=== PATIENT | male | born 1955 | race Caucasian/White ===

== ENCOUNTER 2016-09-24 22:30 | Inpatient (IN) | payer MEDICAID ==
--- NOTE | 2016-09-24 23:14 | ED Physician Chart ---
Chief Complaint/HPI - Patient Information Date Seen:: 09/24/16 Time Seen:: 23:09 Chief Complaint:: altered LOC History of Present Illness:: ems were called to get this pt for alt ms. pt says he is here because he vomited earlier today and had RODRIGUEZ and ABd pain. He does not strike me as very reliable....data from [place] is not enlightening. asked pt why he is in [facility] he cant tell me. asked detailed questions pt not helpfull. for instance he cant tell me why his speech is slurred or if this is nrml or not. Historian:: Patient, Medical Records Review:: Transfer documents Reviewed Review of Systems - Review of Systems General/Constitutional: No fever, No chills, No weight loss, No weakness, No diaphoresis, No edema, No loss of appetite Skin: No skin lesions, No rash, No bruising Head: No headache, No light-headedness Eyes: No loss of vision, No pain, No diplopia ENT: No earache, No nasal drainage, No sore throat, No tinnitus Neck: No neck pain, No swelling, No thyromegaly, No stiffness, No mass noted Cardio Vascular: No chest pain, No palpitations, No PND, No orthopnea, No edema Pulmonary: No SOB, No cough, No sputum, No wheezing GI: No nausea, No vomiting, No diarrhea, No pain, No melena, No hematochezia, No constipation, No hematemesis G/U: No dysuria, No frequency, No hematuria Musculoskeletal: No bone or joint pain, No back pain, No muscle pain Endocrine: No polyuria, No polydipsia Psychiatric: No prior psych history, No depression, No anxiety, No suicidal ideation Hematopoietic: No bruising, No lymphadenopathy Allergic/Immuno: No urticaria, No angioedema Neurological: No syncope, No focal symptoms, No weakness, No paresthesia, No headache, No seizure, No dizziness, Confusion, No vertigo, Other (slurred speech ) Past Medical History - Past Medical History Past Medical History: DM, CAD, Dyslipidemia, Other (extrapyrimidal mvt disorder) Social History: Care Facility Psychiatricy History: Schizophrenia Medication: Reviewed Family Medical History - Family Member Mother History Unknown: Yes Physical Exam - Physical Examination General/Constitutional: Awake, Well-developed, well-nourished, Alert, No distress, GCS 15, Non-toxic appearing, Ambulatory Other Gen/Cons comments:: pt able to walk but seems unsteady on feet. speech is intelligable but thick/ slow and difficult to understand. Head: Atraumatic Eyes: Lids, conjuctiva normal, PERRL, EOMI Skin: Nl inspection, No rash, No skin lesions, No ecchymosis, Well hydrated, No lymphadenopathy ENMT: External ears, nose nl, Nasal exam nl, Lips, teeth, gums nl Neck: Nontender, Full ROM w/o pain, No JVD, No nuchal rigidity, No bruit, No mass, No stridor Respiratory: Nl effort/Exclusion, Clear to Auscultation, No Wheeze/Rhonchi/Rales Cardio Vascular: RRR, No murmur, gallop, rubs, NL S1 S2 GI: No tenderness/rebounding/guarding, No organomegaly, No hernia, Normal BS's, Nondistended, No mass/bruits, No McBurney tenderness : No CVA tenderness Extremities: No tenderness or effusion, Full ROM, normal strength in all extremities, No edema, Normal digits & nails Neuro/Psych: Alert/oriented, DTR's symmetric, Normal sensory exam, Normal motor strength, Judgement/insight normal, Mood normal, Normal gait, No focal deficits Misc: normal gait, Normal back, No paraspinal tenderness Labs/Radiology/EKG Results - Lab Results Results: Laboratory Tests 09/24/16 09/24/16 09/24/16 23:47 23:47 23:47 WBC 6.3 RBC 4.23 L Hgb 13.0 L Hct 37.9 L MCV 89.6 MCH 30.7 H MCHC Differential 34.3 RDW 12.2 Plt Count 163 MPV 8.3 Neutrophils % 60.4 Lymphocytes % 30.9 Monocytes % 6.7 Eosinophils % 1.8 Basophils % 0.2 Sodium 134 L Potassium 3.9 Chloride 99 Carbon Dioxide 28.6 Anion Gap 10.3 BUN 14 Creatinine 0.8 Est GFR ( Amer) > 60.0 Est GFR (Non-Af Amer) > 60.0 BUN/Creatinine Ratio 17.5 Glucose 263 H Whole Bld Lactic Acid Calcium 8.9 Total Bilirubin 0.5 AST 16 ALT 19 Alkaline Phosphatase 33 L Troponin I < 0.01 L Total Protein 7.1 Albumin 3.5 L Globulin 3.6 Albumin/Globulin Ratio 1.0 Urine Source Urine Color Urine Clarity Urine pH Ur Specific [place] Urine Protein Urine Glucose (UA) Urine Ketones Urine Blood Urine Nitrate Urine Bilirubin Urine Urobilinogen Ur Leukocyte Esterase Urine RBC Urine WBC Ur Epithelial Cells Urine Bacteria Valproic Acid 67.7 09/24/16 09/25/16 23:47 01:40 WBC RBC Hgb Hct MCV MCH MCHC Differential RDW Plt Count MPV Neutrophils % Lymphocytes % Monocytes % Eosinophils % Basophils % Sodium Potassium Chloride Carbon Dioxide Anion Gap BUN Creatinine Est GFR ( Amer) Est GFR (Non-Af Amer) BUN/Creatinine Ratio Glucose Whole Bld Lactic Acid 1.75 Calcium Total Bilirubin AST ALT Alkaline Phosphatase Troponin I Total Protein Albumin Globulin Albumin/Globulin Ratio Urine Source CLEAN C Urine Color YELLOW Urine Clarity CLEAR Urine pH 6.0 Ur Specific [place] 1.010 Urine Protein NEGATIVE Urine Glucose (UA) 100 H Urine Ketones NEGATIVE Urine Blood NEGATIVE Urine Nitrate NEGATIVE Urine Bilirubin NEGATIVE Urine Urobilinogen 0.2 Ur Leukocyte Esterase NEGATIVE Urine RBC NONE SEEN Urine WBC 0-2 Ur Epithelial Cells OCCASIONAL Urine Bacteria OCCASIONAL Valproic Acid - Radiology Results Results: ct abd/p- small hh, nonobs rt renal stone, nrml appy, no ash, ct head volume loss - EKG Interpretations EKG Time:: 00:05 Rhythm: nsr 69 [place]: -24 Comments:: nsr 69 wnl ED Septic Shock - . Is Septic Shock (SBP<90, OR Lactate>4 mmol\L) present?: No Reassessment (Disposition) - Reassessment Reassessment:: admit by Dr William Reassessment Condition:: Unchanged - Diagnosis Diagnosis:: ALOC - Patient Disposition Admitted to:: Telemetry Condition at Disposition:: Unchanged ED Discharge Plan - Patient Disposition Admit/Discharge/Transfer: Acute Care w/in this hosp Condition at Disposition: Stable
[2016-09-25 00:09] LABS: % BASOPHILS 0.2 % (0.0-2.0); % EOSINOPHILS 1.8 % (0.0-5.0); % LYMPHOCYTES 30.9 % (20.0-50.0); % MONOCYTES 6.7 % (2.0-10.0); % NEUTROPHILS 60.4 % (40.0-80.0); HEMATOCRIT 37.9 % (39.0-49.0); MEAN CELL VOLUME 89.6 fl (80-99); MEAN CORPUSCULAR HEMOGLOBIN 30.7 pg (26.0-30.0); MEAN CORPUSCULAR HGB CONC 34.3 pg (28.0-36.0); MEAN PLATELET VOLUME 8.3 fl; NEUTROPHILE ABSOLUTE 3.9 Th/cmm (1.8-8.0); PLATELET COUNT 163 Th/cmm (150-400); RED BLOOD COUNT 4.23 Mil/cmm (4.30-5.70); RED CELL DISTRIBUTION WIDTH 12.2 % (11.5-20.0); WHITE BLOOD COUNT 6.3 Th/cmm (4.8-10.8)
[2016-09-25 00:18] LABS: ALKALINE PHOSPHATASE 33 U/L (34-104); ANION GAP 10.3 (7.0-16.0); BILIRUBIN,TOTAL 0.5 mg/dL (0.3-1.0); BUN - UREA NITROGEN 14 mg/dL (7-25); BUN/CREATININE RATIO 17.5; CALCIUM SERUM 8.9 mg/dL (8.6-10.3); CARBON DIOXIDE 28.6 mEq/L (21.0-31.0); CHLORIDE 99 mEq/L (98-107); CREATININE - SERUM 0.8 mg/dL (0.7-1.3); GLUCOSE 263 mg/dL (70-105); POTASSIUM SERUM 3.9 mEq/L (3.5-5.1); SGOT 16 U/L (13-39); SGPT/ALT 19 U/L (7-52); SODIUM SERUM 134 mEq/L (136-145)
[2016-09-25 00:20] LABS: TROP I < 0.01 ng/mL (0.01-0.05)
[2016-09-25 00:26] VITALS: BP 126/69
[2016-09-25 00:47] LABS: VALPROIC ACID 67.7 ug/mL (50.0-100.0)
[2016-09-25 01:56] LABS: URINE BILIRUBIN NEGATIVE (NEGATIVE); URINE BLOOD NEGATIVE (NEGATIVE); URINE COLOR YELLOW; URINE GLUCOSE (UA) 100 mg/dL (NEGATIVE); URINE KETONE NEGATIVE (NEGATIVE); URINE PROTEIN NEGATIVE (NEGATIVE); URINE UROBILINOGEN 0.2 E.U./dL (0.2 - 1.0)
[2016-09-25 01:57] LABS: URINE BACTERIA OCCASIONAL /hpf (NONE SEEN); URINE EPITHELIAL CELLS OCCASIONAL /lpf (FEW); URINE RBC NONE SEEN /hpf (0-5); URINE WBC 0-2 /hpf (0-5)
[2016-09-25 06:14] LABS: AMPHETAMINE URINE NEGATIVE (NEGATIVE); BARBITURATES URINE NEGATIVE (NEGATIVE)
[2016-09-25] MEDS ORDERED: Pneumococcal Vaccine 0.5 mL Vial IM ONE (09:00)
[2016-09-25] MEDS ORDERED: GLUCAGON HCl 1 MG KIT IM PRN (09:58)
[2016-09-25] MEDS ORDERED: PALIPERIDONE PALMITATE 234 MG IM SCH (10:15)
--- NOTE | 2016-09-25 10:49 | Diagnostic Imaging Report ---
Head CT without intravenous contrast Indication: Altered mental status Comparison: None Technique: Axial images were obtained from the vertex to the skull base without IV contrast. Coronal reconstructions were made. Total DLP: 734, CTDI37 FINDINGS: Images of the brain obtained without contrast demonstrate no evidence of an acute hemorrhage. Diffuse atrophy is noted. The ventricles and basal cisterns are patent. No mass effect or midline shift. Atherosclerosis is noted. There is partial opacification left maxillary sinus and additional mucosal thickening of paranasal sinuses. No evidence of a skull fracture or focal soft tissue swelling. IMPRESSION: No evidence of acute intracranial hemorrhage Diffuse atrophy. Left maxillary sinusitis. Atherosclerotic vascular disease.
[2016-09-25] MEDS ORDERED: INSULIN ASPART SLIDING SCALE 100 UNITS/ML UNIT SUBQ SCH (11:30)
--- NOTE | 2016-09-25 11:30 | Diagnostic Imaging Report ---
CT abdomen and pelvis without intravenous contrast Indication: Abdominal pain Comparison: None, Technique: Axial images were obtained from the lung bases to the bilateral proximal femurs without IV contrast. Coronal reconstructions were made. total DLP: 539, CTDI10 FINDINGS: Hypoventilatory changes of the lung bases are noted. Assessment of the solid organs is limited due to lack of IV contrast. No evidence of focal hepatic lesions. Borderline prominent spleen is noted. No evidence of focal lesions. No focal pancreatic or adrenal lesions. A 7 mm right renal stone is noted. No hydronephrosis. Mild urinary bladder wall thickening versus partial distention is noted. Moderate stool is seen. No appendicitis. Mild diverticulosis is noted without evidence of diverticulitis. Small hiatal hernia and possible mild distal esophageal wall thickening is noted. Diffuse atherosclerosis is noted. No free air or free fluid. Degenerative changes of the spine are noted. IMPRESSION: Moderate amount of stool. No evidence of acute appendicitis. 7 mm right renal calculus. No hydronephrosis. Mild prominence of urinary bladder wall. Please clinically correlate with the possible inflammatory process. Small hiatal hernia and possible distal esophageal wall thickening. Correlation is to be made with clinical findings. Diffuse atherosclerotic vascular disease.
--- NOTE | 2016-09-25 14:26 | Internal Medicine Prog Note ---
Internal Medicine Subjective - Subjective Service Date: 09/25/16 ([facility] dictated [id number]) Internal Medicine Objective - Results Result Diagrams: 09/24/16 23:47 09/24/16 23:47 Recent Labs: Laboratory Last Values WBC 6.3 Th/cmm (4.8-10.8) 09/24/16 23:47 RBC 4.23 Mil/cmm (4.30-5.70) L 09/24/16 23:47 Hgb 13.0 gm/dL (13.2-17.3) L 09/24/16 23:47 Hct 37.9 % (39.0-49.0) L 09/24/16 23:47 MCV 89.6 fl (80-99) 09/24/16 23:47 MCH 30.7 pg (26.0-30.0) H 09/24/16 23:47 MCHC Differential 34.3 pg (28.0-36.0) 09/24/16 23:47 RDW 12.2 % (11.5-20.0) 09/24/16 23:47 Plt Count 163 Th/cmm (150-400) 09/24/16 23:47 MPV 8.3 fl 09/24/16 23:47 Neutrophils % 60.4 % (40.0-80.0) 09/24/16 23:47 Lymphocytes % 30.9 % (20.0-50.0) 09/24/16 23:47 Monocytes % 6.7 % (2.0-10.0) 09/24/16 23:47 Eosinophils % 1.8 % (0.0-5.0) 09/24/16 23:47 Basophils % 0.2 % (0.0-2.0) 09/24/16 23:47 Sodium 134 mEq/L (136-145) L 09/24/16 23:47 Potassium 3.9 mEq/L (3.5-5.1) 09/24/16 23:47 Chloride 99 mEq/L (98-107) 09/24/16 23:47 Carbon Dioxide 28.6 mEq/L (21.0-31.0) 09/24/16 23:47 Anion Gap 10.3 (7.0-16.0) 09/24/16 23:47 BUN 14 mg/dL (7-25) 09/24/16 23:47 Creatinine 0.8 mg/dL (0.7-1.3) 09/24/16 23:47 Est GFR ( Amer) > 60.0 ml/min 09/24/16 23:47 Est GFR (Non-Af Amer) > 60.0 ml/min 09/24/16 23:47 BUN/Creatinine Ratio 17.5 09/24/16 23:47 Glucose 263 mg/dL (70-105) H 09/24/16 23:47 Hemoglobin A1c % 7.5 % (4.0-6.0) H 09/25/16 23:47 Whole Bld Lactic Acid 1.75 mmol/L (0.60-2.00) 09/24/16 23:47 Calcium 8.9 mg/dL (8.6-10.3) 09/24/16 23:47 Total Bilirubin 0.5 mg/dL (0.3-1.0) 09/24/16 23:47 AST 16 U/L (13-39) 09/24/16 23:47 ALT 19 U/L (7-52) 09/24/16 23:47 Alkaline Phosphatase 33 U/L (34-104) L 09/24/16 23:47 Troponin I < 0.01 ng/mL (0.01-0.05) L 09/24/16 23:47 Total Protein 7.1 gm/dL (6.0-8.3) 09/24/16 23:47 Albumin 3.5 gm/dL (4.2-5.5) L 09/24/16 23:47 Globulin 3.6 gm/dL 09/24/16 23:47 Albumin/Globulin Ratio 1.0 (1.0-1.8) 09/24/16 23:47 Urine Source CLEAN C 09/25/16 01:40 Urine Color YELLOW 09/25/16 01:40 Urine Clarity CLEAR (CLEAR) 09/25/16 01:40 Urine pH 6.0 09/25/16 01:40 Ur Specific [place] 1.010 (1.005-1.030) 09/25/16 01:40 Urine Protein NEGATIVE mg/dL (NEGATIVE) 09/25/16 01:40 Urine Glucose (UA) 100 mg/dL (NEGATIVE) H 09/25/16 01:40 Urine Ketones NEGATIVE mg/dL (NEGATIVE) 09/25/16 01:40 Urine Blood NEGATIVE (NEGATIVE) 09/25/16 01:40 Urine Nitrate NEGATIVE (NEGATIVE) 09/25/16 01:40 Urine Bilirubin NEGATIVE (NEGATIVE) 09/25/16 01:40 Urine Urobilinogen 0.2 E.U./dL (0.2 - 1.0) 09/25/16 01:40 Ur Leukocyte Esterase NEGATIVE (NEGATIVE) 09/25/16 01:40 Urine RBC NONE SEEN /hpf (0-5) 09/25/16 01:40 Urine WBC 0-2 /hpf (0-5) 09/25/16 01:40 Ur Epithelial Cells OCCASIONAL /lpf (FEW) 09/25/16 01:40 Urine Bacteria OCCASIONAL /hpf (NONE SEEN) 09/25/16 01:40 Urine Opiates Screen NEGATIVE (NEGATIVE) 09/25/16 01:40 Ur Barbiturates Screen NEGATIVE (NEGATIVE) 09/25/16 01:40 Valproic Acid 67.7 ug/mL (50.0-100.0) 09/24/16 23:47 Ur Phencyclidine Scrn NEGATIVE (NEGATIVE) 09/25/16 01:40 Amphetamines Screen NEGATIVE (NEGATIVE) 09/25/16 01:40 U Methamphetamines Scrn NEGATIVE (NEGATIVE) 09/25/16 01:40 U Benzodiazepines Scrn POSITIVE (NEGATIVE) H 09/25/16 01:40 U Cocaine Metab Screen NEGATIVE (NEGATIVE) 09/25/16 01:40 U Cannabinoids Screen NEGATIVE (NEGATIVE) 09/25/16 01:40 - Physical Exam Vitals and I&O: Vital Signs Temp 97.3 F 09/25/16 08:00 Pulse 60 09/25/16 08:00 Resp 15 09/25/16 08:00 BP 124/73 09/25/16 08:00 Pulse Ox 100 09/25/16 08:00 Active Medications: Current Medications Acetaminophen (Tylenol) 650 mg PO Q6HR PRN PRN Reason: Pain or Fever >101 Stop: 11/24/16 09:57 Aspirin (Aspirin Chewable) 81 mg PO DAILY JOSÉ MIGUEL Stop: 11/25/16 08:59 Atorvastatin Calcium (Lipitor) 10 mg PO HS JOSÉ MIGUEL Stop: 11/24/16 20:59 Benztropine Mesylate (Cogentin) 1 mg PO TID JOSÉ MIGUEL Stop: 11/24/16 13:59 Divalproex Sodium (Depakote Dr) 500 mg PO TID JOSÉ MIGUEL PRN Reason: Protocol Stop: 11/24/16 13:59 Fish Oil ([place] 3) 1,000 mg PO DAILY [facility] Stop: 11/25/16 08:59 Insulin Aspart (Novolog Insulin Sliding Scale) 0 units SUBQ ACHS JOSÉ MIGUEL PRN Reason: Protocol Stop: 11/24/16 11:29 Last Admin: 09/25/16 12:09 Dose: Not Given Lorazepam (Ativan) 1 mg PO PRN PRN; Protocol PRN Reason: Agitation Stop: 11/24/16 09:57 Miscellaneous (Glucagon,Human Recombinant [Glucagon Emergency Kit]) 1 mg IJ PRN PRN PRN Reason: hypoglycemia Miscellaneous (Paliperidone Palmitate [Invega Sustenna]) 234 mg IM Q30D [facility]1983 Stop: 11/24/16 10:14 Olanzapine (Zyprexa) 10 mg PO HS JOSÉ MIGUEL PRN Reason: Protocol Stop: 11/24/16 20:59 Quetiapine Fumarate (Seroquel) 25 mg PO TID JOSÉ MIGUEL PRN Reason: Protocol Stop: 11/24/16 13:59 Zolpidem Tartrate (Ambien) 5 mg PO HS PRN PRN Reason: Insomnia Stop: 11/24/16 10:00 Internal Medicine Assmt/Plan - Assessment Assessment: aloc dysarthia extrapyramidal movements hypercholesteremia dm-2
[2016-09-25] MEDS ORDERED: VTE Chemical Prophylaxis Screen/Admission MC PRN (14:32)
[2016-09-25] MEDS: Benztropine 1 MG TAB PO SCH ×2 (15:40→21:17)
--- NOTE | 2016-09-25 15:46 | History & Physical ---
CHIEF COMPLAINT: ALOC. HISTORY OF PRESENT ILLNESS: This is a 61-year-old male who is a resident of [facility] who was brought here to [facility] for ALOC. The patient also stated that he had abdominal pain. The patient has a slurred speech and poor historian. PAST MEDICAL HISTORY: Paranoid schizophrenia, insomnia, atherosclerotic heart disease, type 2 diabetes, hypercholesterolemia, extrapyramidal MVT disorder. SOCIAL HISTORY: The patient resides at a shelter, requiring 24-hour nursing care. MEDICATIONS: Please see medication reconciliation sheet. REVIEW OF SYSTEMS: Unable to obtain, the patient is somewhat confused. PHYSICAL EXAMINATION: GENERAL: The patient is well developed, well nourished, no acute distress. VITAL SIGNS: Temperature 97.0, heart rate 60, blood pressure 124/73, respirations 16, O2 100%. HEENT: Head; normocephalic, atraumatic. NECK: Supple. No mass. LUNGS: Clear bilaterally upon auscultation. CARDIOVASCULAR: Regular rhythm. No murmurs or gallops. SKIN: Intact, warm and dry to touch. ABDOMEN: Soft, nontender, nondistended. Positive bowel sounds in all 4 quadrants. LABORATORY DATA: WBC 6.3, H and H 13.0 and 37.9, platelets 163. Sodium 134, potassium 3.9, chloride 99, carbon dioxide 28.6, BUN 14, creatinine 0.8, hemoglobin A1c is 7.5. Troponin 0.01. The patient had a urinalysis that was negative for any UTI. The patient also had a toxicology test and positive for benzodiazepines. DIAGNOSTICS: The patient had a CT of the head done in the ER due to ALOC and the impression is no evidence of acute intracranial hemorrhage, left maxillary sinusitis. The patient also had a CT of the abdomen and pelvis and the impression is moderate amount of stool, no evidence of acute appendicitis. ASSESSMENT: 1. Altered level of consciousness. 2. Diabetes. 3. Coronary artery disease. 4. Dyslipidemia. 5. Dysarthria. 6. Extrapyramidal movement disorder. PLAN: The patient will be admitted to the med/surg unit. The patient will have a consultation with Dr. Stewart. The patient will be kept on IV fluids for hydration. The patient to continue same medications the patient was taking at the shelter. We will continue to monitor the patient. JOB# [id number]
[2016-09-25] MEDS: INSULIN ASPART, RECOMBINANT 100 UNITS/ML SUBQ SCH ×2 (16:54→21:19)
[2016-09-25] MEDS: Sodium Chloride 0.9% 1,000 ML IV SCH (17:37)
[2016-09-25] MEDS: Atorvastatin Calcium 10 MG TAB PO SCH (21:17)
--- NOTE | 2016-09-25 22:13 | Consultation ---
CHIEF COMPLAINT: "I am fine." HISTORY OF PRESENT ILLNESS: The patient is a 61-year-old male with a history of chronic mental illness and multiple medical problems, was [facility] his [facility] to this facility for increased agitation and confusion, becoming more difficult to redirect, now is on medical floor, has uncontrollable diabetes. The patient has been yelling, screaming, paranoid, talking to himself, very aggressive, threatening staff. PAST PSYCHIATRIC HISTORY: Chronic history of mental illness. The patient carries a diagnosis of schizoaffective disorder and he has been in the psychiatric hospital many times. PAST MEDICAL HISTORY: Diabetes that is out of control at this time and he has a history of hypercholesterolemia and the patient has history of CAD. PSYCHOSOCIAL HISTORY: The patient resides at the [facility] and he requires complete care. MENTAL STATUS EXAMINATION: The patient was in bed. Speech is minimal, dysarthric, short sentences. Mood is "okay." Affect is irritable. This patient appears to be guarded and paranoid, responding to internal stimuli. He is oriented to person, place and age. ASSESSMENT: Schizophrenia, paranoid type versus schizoaffective disorder in psychotic phase. PLAN: We will decrease Zyprexa to 10 mg by mouth every bedtime for lack of efficacy, add Seroquel 25 mg by mouth 3 times a day. The patient would need psychiatric hospitalization given the level of his agitation. We will monitor closely. Thank you for the consultation. JOB# [id number]
--- NOTE | 2016-09-26 00:20 | Admit Criteria Form ---
Admit Criteria Forms - Admit Criteria Diagnosis: ACUTE LOSS OF CONSCIOUSNESS- ALOC Clinical Indications for Inpatient Care (Place 'X' for any and all applicable criteria): Ongoing inpatient care may be needed for ANY ONE of the following(1)(2)(3)(5)(6) : [ X]I. Suspected serious etiology (eg, medical disorder, VACUUM PAN TENDER event) of mental status change [ ]II. Danger to self or others not manageable at lower level of care [ ]III. Grave disability (eg, inability to perform self care necessary at lower level of care) [ ]IV. Agitation or inappropriate behavior interfering with care for primary condition (eg, attempting to discontinue lines or drains prematurely, unable to cooperate with respiratory care) [ ]V. Delirium [A] [D][E] as described by ANY ONE of the following(26): [ ]a) Delirium due to alcohol or sedative [F] withdrawal [ ]b) Delirium of uncertain etiology that has not responded to appropriate empiric treatment [ ]c) Delirium that prevents performance of a life-sustaining function (eg, feeding or hydrating oneself) [ ]. General contraindications and/or Inappropriate clinical situations for Observational Care in patients with Acute Loss of Consciousness, when ANY ONE of the following is required: [ ]a) Prediction of prolongation of LOS based on ANY ONE of the following may be considered as a contraindication for observational care 2, 3, 4, 5, 6, 7, 8 , 9, 10, 11 [ ]i) Age > 65 yrs. [ ]ii) Patient arriving by ambulance [ ]iii) Patient with high acuity [ ]iv) Patient requiring vital sign monitoring [ ]v) Patient on IV medication [ ]b) Systolic blood pressures 180mmHg 3,12 [ ]c) Patient with altered mental status including delirium and other alteration of consciousness, (3) [ ]d) Patient whose discharge disposition will be to a nursing home home or rehabilitation home should not be managed in Emergency Department Observation Unit. CMS rule requires 3 days hospital stay before such placement.3,13 [ ]e) Patient with failure to thrive due to broad array of etiologies 3,16,17 [ ]f) Inability to ambulate 3,14 Extended stay beyond goal length of stay for the primary condition may be needed until ALL of the following are present(3)(5): [ ]a) Underlying medical etiology of mental status change is absent, or has been established and adequately treated [ ]b) Danger to self or others is absent or manageable at lower level of care. [ ]c) Behavior crisis management, including physical or chemical restraints, is not required or available at lower level of car [ ]d) Substance or alcohol withdrawal is absent or manageable at lower level of care. [ ]e) Behavioral symptoms (eg, agitation, somnolence, inappropriate behavior) are absent, or are manageable at lower level of care. The original [facility] content created by [facility] has been revised. The portions of the content which have been revised are identified through the use of italic text or in bold, and [facility] has neither reviewed nor approved the modified material. All other unmodified content is copyright [facility]. Please see references footnoted in the original [facility] edition 2016 Admit Criteria Met?: Yes
[2016-09-26 05:48] LABS: % BASOPHILS 0.2 % (0.0-2.0); % LYMPHOCYTES 26.6 % (20.0-50.0); % MONOCYTES 6.4 % (2.0-10.0); % NEUTROPHILS 64.8 % (40.0-80.0); HEMOGLOBIN 13.6 gm/dL (13.2-17.3); MEAN CELL VOLUME 86.8 fl (80-99); MEAN CORPUSCULAR HEMOGLOBIN 29.4 pg (26.0-30.0); MEAN CORPUSCULAR HGB CONC 33.9 pg (28.0-36.0); NEUTROPHILE ABSOLUTE 3.7 Th/cmm (1.8-8.0); PLATELET COUNT 154 Th/cmm (150-400); RED BLOOD COUNT 4.61 Mil/cmm (4.30-5.70); RED CELL DISTRIBUTION WIDTH 12.4 % (11.5-20.0); WHITE BLOOD COUNT 5.7 Th/cmm (4.8-10.8)
[2016-09-26 06:00] LABS: ANION GAP 9.4 (7.0-16.0); BUN - UREA NITROGEN 18 mg/dL (7-25); BUN/CREATININE RATIO 22.5; CALCIUM SERUM 8.7 mg/dL (8.6-10.3); CHLORIDE 101 mEq/L (98-107); CREATININE - SERUM 0.8 mg/dL (0.7-1.3); GLUCOSE 198 mg/dL (70-105); POTASSIUM SERUM 4.4 mEq/L (3.5-5.1); SODIUM SERUM 135 mEq/L (136-145)
[2016-09-26] MEDS: INSULIN ASPART, RECOMBINANT 100 UNITS/ML SUBQ SCH ×4 (06:45→21:22)
[2016-09-26] MEDS: Benztropine 1 MG TAB PO SCH ×3 (09:17→21:21)
[2016-09-26] MEDS: Fish Oil 1,000 MG SGL PO SCH (09:17)
[2016-09-26] MEDS: Aspirin 81mg Chewable Tab PO SCH (09:17)
--- NOTE | 2016-09-26 12:57 | Internal Medicine Prog Note ---
Internal Medicine Subjective - Subjective Service Date: 09/26/16 Patient seen and examined:: with staff Patient is:: awake Per staff patient is:: no adverse event Internal Medicine Objective - Results Result Diagrams: 09/26/16 05:28 09/26/16 05:28 Recent Labs: Laboratory Last Values WBC 5.7 Th/cmm (4.8-10.8) 09/26/16 05:28 RBC 4.61 Mil/cmm (4.30-5.70) 09/26/16 05:28 Hgb 13.6 gm/dL (13.2-17.3) 09/26/16 05:28 Hct 40.0 % (39.0-49.0) 09/26/16 05:28 MCV 86.8 fl (80-99) 09/26/16 05:28 MCH 29.4 pg (26.0-30.0) 09/26/16 05:28 MCHC Differential 33.9 pg (28.0-36.0) 09/26/16 05:28 RDW 12.4 % (11.5-20.0) 09/26/16 05:28 Plt Count 154 Th/cmm (150-400) 09/26/16 05:28 MPV 8.0 fl 09/26/16 05:28 Neutrophils % 64.8 % (40.0-80.0) 09/26/16 05:28 Lymphocytes % 26.6 % (20.0-50.0) 09/26/16 05:28 Monocytes % 6.4 % (2.0-10.0) 09/26/16 05:28 Eosinophils % 2.0 % (0.0-5.0) 09/26/16 05:28 Basophils % 0.2 % (0.0-2.0) 09/26/16 05:28 Sodium 135 mEq/L (136-145) L 09/26/16 05:28 Potassium 4.4 mEq/L (3.5-5.1) 09/26/16 05:28 Chloride 101 mEq/L (98-107) 09/26/16 05:28 Carbon Dioxide 29.0 mEq/L (21.0-31.0) 09/26/16 05:28 Anion Gap 9.4 (7.0-16.0) 09/26/16 05:28 BUN 18 mg/dL (7-25) 09/26/16 05:28 Creatinine 0.8 mg/dL (0.7-1.3) 09/26/16 05:28 Est GFR ( Amer) > 60.0 ml/min 09/26/16 05:28 Est GFR (Non-Af Amer) > 60.0 ml/min 09/26/16 05:28 BUN/Creatinine Ratio 22.5 09/26/16 05:28 Glucose 198 mg/dL (70-105) H 09/26/16 05:28 POC Glucose 211 MG/DL (70 - 105) H 09/26/16 11:27 Hemoglobin A1c % 7.5 % (4.0-6.0) H 09/25/16 23:47 Whole Bld Lactic Acid 1.75 mmol/L (0.60-2.00) 09/24/16 23:47 Calcium 8.7 mg/dL (8.6-10.3) 09/26/16 05:28 Total Bilirubin 0.5 mg/dL (0.3-1.0) 09/24/16 23:47 AST 16 U/L (13-39) 09/24/16 23:47 ALT 19 U/L (7-52) 09/24/16 23:47 Alkaline Phosphatase 33 U/L (34-104) L 09/24/16 23:47 Troponin I < 0.01 ng/mL (0.01-0.05) L 09/24/16 23:47 Total Protein 7.1 gm/dL (6.0-8.3) 09/24/16 23:47 Albumin 3.5 gm/dL (4.2-5.5) L 09/24/16 23:47 Globulin 3.6 gm/dL 09/24/16 23:47 Albumin/Globulin Ratio 1.0 (1.0-1.8) 09/24/16 23:47 Urine Source CLEAN C 09/25/16 01:40 Urine Color YELLOW 09/25/16 01:40 Urine Clarity CLEAR (CLEAR) 09/25/16 01:40 Urine pH 6.0 09/25/16 01:[address] 1.010 (1.005-1.030) 09/25/16 01:40 Urine Protein NEGATIVE mg/dL (NEGATIVE) 09/25/16 01:40 Urine Glucose (UA) 100 mg/dL (NEGATIVE) H 09/25/16 01:40 Urine Ketones NEGATIVE mg/dL (NEGATIVE) 09/25/16 01:40 Urine Blood NEGATIVE (NEGATIVE) 09/25/16 01:40 Urine Nitrate NEGATIVE (NEGATIVE) 09/25/16 01:40 Urine Bilirubin NEGATIVE (NEGATIVE) 09/25/16 01:40 Urine Urobilinogen 0.2 E.U./dL (0.2 - 1.0) 09/25/16 01:40 Ur Leukocyte Esterase NEGATIVE (NEGATIVE) 09/25/16 01:40 Urine RBC NONE SEEN /hpf (0-5) 09/25/16 01:40 Urine WBC 0-2 /hpf (0-5) 09/25/16 01:40 Ur Epithelial Cells OCCASIONAL /lpf (FEW) 09/25/16 01:40 Urine Bacteria OCCASIONAL /hpf (NONE SEEN) 09/25/16 01:40 Urine Opiates Screen NEGATIVE (NEGATIVE) 09/25/16 01:40 Ur Barbiturates Screen NEGATIVE (NEGATIVE) 09/25/16 01:40 Valproic Acid 67.7 ug/mL (50.0-100.0) 09/24/16 23:47 Ur Phencyclidine Scrn NEGATIVE (NEGATIVE) 09/25/16 01:40 Amphetamines Screen NEGATIVE (NEGATIVE) 09/25/16 01:40 U Methamphetamines Scrn NEGATIVE (NEGATIVE) 09/25/16 01:40 U Benzodiazepines Scrn POSITIVE (NEGATIVE) H 09/25/16 01:40 U Cocaine Metab Screen NEGATIVE (NEGATIVE) 09/25/16 01:40 U Cannabinoids Screen NEGATIVE (NEGATIVE) 09/25/16 01:40 - Physical Exam Vitals and I&O: Vital Signs Temp 69 F 09/26/16 12:19 Pulse 69 09/26/16 12:19 Resp 18 09/26/16 12:19 BP 103/50 09/26/16 12:19 Pulse Ox 98 09/26/16 12:19 Intake & Output 09/25/16 09/26/16 09/26/16 18:59 06:59 18:59 Intake Total 1020 220 Balance 1020 220 Intake: Oral 1020 220 Other: # Voids 3 2 Active Medications: Current Medications Acetaminophen (Tylenol) 650 mg PO Q6HR PRN PRN Reason: Pain or Fever >101 Stop: 11/24/16 09:57 Aspirin (Aspirin Chewable) 81 mg PO DAILY [facility] Stop: 11/25/16 08:59 Last Admin: 09/26/16 09:17 Dose: 81 mg Atorvastatin Calcium (Lipitor) 10 mg PO HS [facility] Stop: 11/24/16 20:59 Last Admin: 09/25/16 21:17 Dose: 10 mg Benztropine Mesylate (Cogentin) 1 mg PO TID [facility] Stop: 11/24/16 13:59 Last Admin: 09/26/16 09:17 Dose: 1 mg Divalproex Sodium (Depakote Dr) 500 mg PO TID [facility] PRN Reason: Protocol Stop: 11/24/16 13:59 Last Admin: 09/26/16 09:17 Dose: 500 mg Fish Oil ([place] 3) 1,000 mg PO DAILY [facility] Stop: 11/25/16 08:59 Last Admin: 09/26/16 09:17 Dose: 1,000 mg Glucagon (Glucagen) 1 mg IM PRN PRN PRN Reason: Blood Sugar <60 Sodium Chloride (Nacl 0.9%) 1,000 mls @ 50 mls/hr IV .Q20H [facility] Stop: 11/24/16 14:29 Last Admin: 09/25/16 17:37 Dose: 50 mls/hr Insulin Aspart (Novolog) 0 units SUBQ ACHS [facility] PRN Reason: Protocol Stop: 11/24/16 16:29 Last Admin: 09/26/16 06:45 Dose: 4 units Lorazepam (Ativan) 1 mg PO Q8H PRN; Protocol PRN Reason: Agitation Stop: 11/24/16 09:57 Metformin HCl (Glucophage) 850 mg PO BID [facility] Stop: 11/25/16 16:59 Miscellaneous (Paliperidone Palmitate [Invega Sustenna]) 234 mg IM Q30D [facility] Stop: 11/24/16 10:14 Miscellaneous ([employer] Prophylaxis Screen/ Admission) 1 ea [facility] PRN PRN PRN Reason: PROTOCOL Stop: 11/24/16 14:31 Olanzapine (Zyprexa) 10 mg PO HS [facility] PRN Reason: Protocol Stop: 11/24/16 20:59 Last Admin: 09/25/16 21:17 Dose: 10 mg Pantoprazole Sodium (Protonix) 40 mg IVP DAILY [facility] Stop: 11/25/16 08:59 Last Admin: 09/26/16 09:17 Dose: 40 mg Quetiapine Fumarate (Seroquel) 25 mg PO TID [facility] PRN Reason: Protocol Stop: 11/24/16 13:59 Last Admin: 09/26/16 09:17 Dose: 25 mg Zolpidem Tartrate (Ambien) 5 mg PO HS PRN PRN Reason: Insomnia Stop: 11/24/16 10:00 General: alert HEENT: NC/AT, PERRLA Neck: Supple Lungs: CTAB Cardiovascular: RRR, Normal S1, Normal S2, without murmur Abdomen: soft non-tender, non-distended, positive bowel sound Neurological: no change Internal Medicine Assmt/Plan - Assessment Assessment: aloc dysarthia extrapyramidal movements hypercholesteremia dm-2 - Plan Plan: monitor glucose level aspiration precaution fall precautions cpm
[2016-09-26] MEDS: Sodium Chloride 0.9% 1,000 ML IV SCH (14:29)
[2016-09-26] MEDS: Atorvastatin Calcium 10 MG TAB PO SCH (21:21)
[2016-09-27] MEDS: INSULIN ASPART, RECOMBINANT 100 UNITS/ML SUBQ SCH ×2 (06:39→12:35)
[2016-09-27 07:00] LABS: % BASOPHILS 0.1 % (0.0-2.0); % EOSINOPHILS 1.8 % (0.0-5.0); % LYMPHOCYTES 27.7 % (20.0-50.0); % MONOCYTES 5.6 % (2.0-10.0); % NEUTROPHILS 64.8 % (40.0-80.0); HEMOGLOBIN 14.5 gm/dL (13.2-17.3); MEAN CELL VOLUME 88.2 fl (80-99); MEAN CORPUSCULAR HEMOGLOBIN 29.8 pg (26.0-30.0); MEAN CORPUSCULAR HGB CONC 33.8 pg (28.0-36.0); MEAN PLATELET VOLUME 8.6 fl; NEUTROPHILE ABSOLUTE 3.9 Th/cmm (1.8-8.0); PLATELET COUNT 142 Th/cmm (150-400); RED BLOOD COUNT 4.88 Mil/cmm (4.30-5.70); RED CELL DISTRIBUTION WIDTH 12.4 % (11.5-20.0); WHITE BLOOD COUNT 5.9 Th/cmm (4.8-10.8)
[2016-09-27 07:23] LABS: BUN - UREA NITROGEN 19 mg/dL (7-25); BUN/CREATININE RATIO 21.1; CALCIUM SERUM 8.9 mg/dL (8.6-10.3); CARBON DIOXIDE 28.2 mEq/L (21.0-31.0); CHLORIDE 101 mEq/L (98-107); CREATININE - SERUM 0.9 mg/dL (0.7-1.3); GLUCOSE 144 mg/dL (70-105); POTASSIUM SERUM 4.2 mEq/L (3.5-5.1); SODIUM SERUM 135 mEq/L (136-145)
[2016-09-27] MEDS: Fish Oil 1,000 MG SGL PO SCH (08:37)
[2016-09-27] MEDS: Aspirin 81mg Chewable Tab PO SCH (08:37)
[2016-09-27] MEDS: Benztropine 1 MG TAB PO SCH ×2 (08:38→14:56)
--- NOTE | 2016-09-27 13:03 | Internal Medicine Prog Note ---
Internal Medicine Subjective - Subjective Service Date: 09/27/16 (DC SUMMARY [id number]) Internal Medicine Objective - Results Result Diagrams: 09/27/16 06:15 09/27/16 06:15 Recent Labs: Laboratory Last Values WBC 5.9 Th/cmm (4.8-10.8) 09/27/16 06:15 RBC 4.88 Mil/cmm (4.30-5.70) 09/27/16 06:15 Hgb 14.5 gm/dL (13.2-17.3) 09/27/16 06:15 Hct 43.0 % (39.0-49.0) 09/27/16 06:15 MCV 88.2 fl (80-99) 09/27/16 06:15 MCH 29.8 pg (26.0-30.0) 09/27/16 06:15 MCHC Differential 33.8 pg (28.0-36.0) 09/27/16 06:15 RDW 12.4 % (11.5-20.0) 09/27/16 06:15 Plt Count 142 Th/cmm (150-400) L 09/27/16 06:15 MPV 8.6 fl 09/27/16 06:15 Neutrophils % 64.8 % (40.0-80.0) 09/27/16 06:15 Lymphocytes % 27.7 % (20.0-50.0) 09/27/16 06:15 Monocytes % 5.6 % (2.0-10.0) 09/27/16 06:15 Eosinophils % 1.8 % (0.0-5.0) 09/27/16 06:15 Basophils % 0.1 % (0.0-2.0) 09/27/16 06:15 Sodium 135 mEq/L (136-145) L 09/27/16 06:15 Potassium 4.2 mEq/L (3.5-5.1) 09/27/16 06:15 Chloride 101 mEq/L (98-107) 09/27/16 06:15 Carbon Dioxide 28.2 mEq/L (21.0-31.0) 09/27/16 06:15 Anion Gap 10.0 (7.0-16.0) 09/27/16 06:15 BUN 19 mg/dL (7-25) 09/27/16 06:15 Creatinine 0.9 mg/dL (0.7-1.3) 09/27/16 06:15 Est GFR ( Amer) > 60.0 ml/min 09/27/16 06:15 Est GFR (Non-Af Amer) > 60.0 ml/min 09/27/16 06:15 BUN/Creatinine Ratio 21.1 09/27/16 06:15 Glucose 144 mg/dL (70-105) H 09/27/16 06:15 POC Glucose 199 MG/DL (70 - 105) H 09/27/16 11:43 Hemoglobin A1c % 7.5 % (4.0-6.0) H 09/25/16 23:47 Whole Bld Lactic Acid 1.75 mmol/L (0.60-2.00) 09/24/16 23:47 Calcium 8.9 mg/dL (8.6-10.3) 09/27/16 06:15 Total Bilirubin 0.5 mg/dL (0.3-1.0) 09/24/16 23:47 AST 16 U/L (13-39) 09/24/16 23:47 ALT 19 U/L (7-52) 09/24/16 23:47 Alkaline Phosphatase 33 U/L (34-104) L 09/24/16 23:47 Troponin I < 0.01 ng/mL (0.01-0.05) L 09/24/16 23:47 Total Protein 7.1 gm/dL (6.0-8.3) 09/24/16 23:47 Albumin 3.5 gm/dL (4.2-5.5) L 09/24/16 23:47 Globulin 3.6 gm/dL 09/24/16 23:47 Albumin/Globulin Ratio 1.0 (1.0-1.8) 09/24/16 23:47 Urine Source CLEAN C 09/25/16 01:40 Urine Color YELLOW 09/25/16 01:40 Urine Clarity CLEAR (CLEAR) 09/25/16 01:40 Urine pH 6.0 09/25/16 01:40 Ur Specific [place] 1.010 (1.005-1.030) 09/25/16 01:40 Urine Protein NEGATIVE mg/dL (NEGATIVE) 09/25/16 01:40 Urine Glucose (UA) 100 mg/dL (NEGATIVE) H 09/25/16 01:40 Urine Ketones NEGATIVE mg/dL (NEGATIVE) 09/25/16 01:40 Urine Blood NEGATIVE (NEGATIVE) 09/25/16 01:40 Urine Nitrate NEGATIVE (NEGATIVE) 09/25/16 01:40 Urine Bilirubin NEGATIVE (NEGATIVE) 09/25/16 01:40 Urine Urobilinogen 0.2 E.U./dL (0.2 - 1.0) 09/25/16 01:40 Ur Leukocyte Esterase NEGATIVE (NEGATIVE) 09/25/16 01:40 Urine RBC NONE SEEN /hpf (0-5) 09/25/16 01:40 Urine WBC 0-2 /hpf (0-5) 09/25/16 01:40 Ur Epithelial Cells OCCASIONAL /lpf (FEW) 09/25/16 01:40 Urine Bacteria OCCASIONAL /hpf (NONE SEEN) 09/25/16 01:40 Urine Opiates Screen NEGATIVE (NEGATIVE) 09/25/16 01:40 Ur Barbiturates Screen NEGATIVE (NEGATIVE) 09/25/16 01:40 Valproic Acid 67.7 ug/mL (50.0-100.0) 09/24/16 23:47 Ur Phencyclidine Scrn NEGATIVE (NEGATIVE) 09/25/16 01:40 Amphetamines Screen NEGATIVE (NEGATIVE) 09/25/16 01:40 U Methamphetamines Scrn NEGATIVE (NEGATIVE) 09/25/16 01:40 U Benzodiazepines Scrn POSITIVE (NEGATIVE) H 09/25/16 01:40 U Cocaine Metab Screen NEGATIVE (NEGATIVE) 09/25/16 01:40 U Cannabinoids Screen NEGATIVE (NEGATIVE) 09/25/16 01:40 - Physical Exam Vitals and I&O: Vital Signs Temp 97.5 F 09/27/16 10:27 Pulse 76 09/27/16 10:27 Resp 17 09/27/16 10:27 BP 132/72 09/27/16 10:27 Pulse Ox 96 09/27/16 10:27 Intake & Output 09/26/16 09/27/16 09/27/16 18:59 06:59 18:59 Intake Total 1000 300 Balance 1000 300 Weight (lbs) 177 lb Intake: Intake, IV Amount 1000 Sodium Chloride 0.9% 1, 1000 000 ml @ 50 mls/hr IV . Q20H [facility] Rx#:[id number] Oral 300 Active Medications: Current Medications Acetaminophen (Tylenol) 650 mg PO Q6HR PRN PRN Reason: Pain or Fever >101 Stop: 11/24/16 09:57 Aspirin (Aspirin Chewable) 81 mg PO DAILY [facility] Stop: 11/25/16 08:59 Last Admin: 09/27/16 08:37 Dose: 81 mg Atorvastatin Calcium (Lipitor) 10 mg PO HS [facility] Stop: 11/24/16 20:59 Last Admin: 09/26/16 21:21 Dose: 10 mg Benztropine Mesylate (Cogentin) 1 mg PO TID [facility] Stop: 11/24/16 13:59 Last Admin: 09/27/16 08:38 Dose: 1 mg Divalproex Sodium (Depakote Dr) 500 mg PO TID [facility] PRN Reason: Protocol Stop: 11/24/16 13:59 Last Admin: 09/27/16 08:38 Dose: 500 mg Fish Oil ([place] 3) 1,000 mg PO DAILY [facility] Stop: 11/25/16 08:59 Last Admin: 09/27/16 08:37 Dose: 1,000 mg Glucagon (Glucagen) 1 mg IM PRN PRN PRN Reason: Blood Sugar <60 Sodium Chloride (Nacl 0.9%) 1,000 mls @ 50 mls/hr IV .Q20H [facility] Stop: 11/24/16 14:29 Last Admin: 09/26/16 14:29 Dose: 50 mls/hr Lorazepam (Ativan) 1 mg PO Q8H PRN; Protocol PRN Reason: Agitation Stop: 11/24/16 09:57 Metformin HCl (Glucophage) 850 mg PO BID [facility] Stop: 11/25/16 16:59 Last Admin: 09/27/16 08:38 Dose: 850 mg Miscellaneous (Paliperidone Palmitate [Invega Sustenna]) 234 mg IM Q30D [facility] Stop: 11/24/16 10:14 Olanzapine (Zyprexa) 10 mg PO HS [facility] PRN Reason: Protocol Stop: 11/24/16 20:59 Last Admin: 09/26/16 21:21 Dose: 10 mg Quetiapine Fumarate (Seroquel) 25 mg PO TID [facility] PRN Reason: Protocol Stop: 11/24/16 13:59 Last Admin: 09/27/16 08:37 Dose: 25 mg Zolpidem Tartrate (Ambien) 5 mg PO HS PRN PRN Reason: Insomnia Stop: 11/24/16 10:00 Internal Medicine Assmt/Plan - Assessment Assessment: aloc dysarthia extrapyramidal movements hypercholesteremia dm-2
--- NOTE | 2016-09-27 20:58 | Discharge Summary ---
FINAL DIAGNOSES: 1. Altered level of consciousness. 2. Diabetes. 3. Coronary artery disease. 4. Dyslipidemia. 5. Dysarthria. 6. Extrapyramidal movement disorder. HISTORY OF PRESENT ILLNESS: This is a 61-year-old male who is a resident of [facility] who was brought here to [facility] for ALOC. The patient also stated that he had abdominal pain. The patient had slurred speech. He is a poor historian. PHYSICAL EXAMINATION: GENERAL: The patient is well developed, well nourished, in no acute distress. VITAL SIGNS: Stable. HEENT: Normocephalic and atraumatic. NECK: Supple. No mass. LUNGS: Clear bilaterally upon auscultation. HEART: Regular rate and rhythm. No murmurs or gallops. SKIN: Intact, warm to touch. ABDOMEN: Soft, nontender, and nondistended. Positive bowel sounds in all 4 quadrants. HOSPITAL COURSE: During the hospital stay, the patient was admitted to the med/surg unit. The patient had a consultation with Dr. Stewart. The patient also had a CT of the head done and the impression is no evidence of acute intracranial hemorrhage. The patient also had a CT of the abdomen and pelvis and the impression is moderate amount of stool and no evidence of acute appendicitis. The patient was kept on IV fluids for hydration. The patient was being followed by psychiatrist. The patient later then stabilized and was stable for discharge. CONDITION UPON DISCHARGE: Fair. DISPOSITION: The patient is going back to [facility]. [facility]# [id number]
== END 2016-09-27 18:20 | DRG 420 ==
LOC: ER 22:30 → MSI 09-25 03:50
PROVIDERS: ADMIT Internal Medicine; ATTEND Internal Medicine
DX: E11.65 Type 2 diabetes mellitus with hyperglycemia (principal); G25.9 Extrapyramidal and movement disorder, unspecified; E78.5 Hyperlipidemia, unspecified; I25.10 Atherosclerotic heart disease of native coronary artery without angina pectoris; G47.00 Insomnia, unspecified; R47.1 Dysarthria and anarthria; F20.0 Paranoid schizophrenia; E78.00 Pure hypercholesterolemia, unspecified; T42.4X5A Adverse effect of benzodiazepines, initial encounter
CPT/HCPCS: 36415-UA; 70450-TC; 80048-TC; 80053-TC; 80164-TC; 81001-TC; 82948-90; 83036-90; 83605; 84484-TC; 85025-TC; 93005; C9113; J1815; J7030; Z7610